=== PATIENT | female | born 1990 | race Caucasian/White ===

== ENCOUNTER 2017-12-18 17:38 | Emergency (ER) | payer SELFPAY ==
[2017-12-18 17:45] VITALS: BP 122/70
[2017-12-18] MEDS ORDERED: PSEUDOEPHEDRINE HCL 30 MG TABLET PO ONE (18:03)
--- NOTE | 2017-12-18 18:07 | ER Document Report ---
ED ENT - General Chief Complaint: Ear Pain Stated Complaint: EAR PAIN Time Seen by Provider: 12/18/17 17:52 Mode of Arrival: Ambulatory Information source: Parent Notes: 27-year-old female to ED for complaint of ear pain. She states she felt there was liquid in her ears and her ears were popping and she had pain and she had sinus pain and she cannot hear very good because of it. Patient is alert and oriented pupils equal and react light respirations regular unlabored and walking with a even steady gait. 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 TRAVEL OUTSIDE OF THE [place] IN LAST 30 DAYS: No - HPI Patient complains to provider of: Ear problem, Nose problem Onset: Other - Chronic with a increase in the last couple weeks Onset/Duration: Gradual, Persistent Quality of pain: Achy Severity: Moderate Pain Level: 2 Context: Recent Illness Location of pain: Ears, Sinus Associated symptoms: Ear pain, Runny nose, Sinus pain, Sinus drainage, Sore throat Similar symptoms previously: Yes Recently seen / treated by doctor: Yes - Related Data Allergies/Adverse Reactions: No Known Allergies Allergy (Verified 12/18/17 17:39) Past Medical History - General Information source: Patient - Social History Smoking Status: Current Every Day Smoker Cigarette use (# per day): Yes Chew tobacco use (# tins/day): No Smoking Education Provided: Yes Frequency of alcohol use: None Drug Abuse: None Lives with: Family Family History: Arthritis, CAD Patient has suicidal ideation: No Patient has homicidal ideation: No - Past Medical History Cardiac Medical History: Reports: None Pulmonary Medical History: Reports: Hx Pneumonia EENT Medical History: Reports: None Neurological Medical History: Reports: None Endocrine Medical History: Reports: None Renal/ Medical History: Reports: None Malignancy Medical History: Reports: None GI Medical History: Reports: None Musculoskeltal Medical History: Reports Hx Musculoskeletal Deformity Skin Medical History: Reports None Psychiatric Medical History: Reports: None Traumatic Medical History: Reports: None Infectious Medical History: Reports: None Surgical Hx: Negative Past Surgical History: Reports: None - Immunizations Immunizations up to date: No Hx Diphtheria, Pertussis, Tetanus Vaccination: No Review of Systems - Review of Systems Constitutional: Recent illness EENT: Ear pain, Nose congestion, Nose discharge, Sinus discharge Cardiovascular: No symptoms reported Respiratory: No symptoms reported Gastrointestinal: No symptoms reported Genitourinary: No symptoms reported Female Genitourinary: No symptoms reported Musculoskeletal: No symptoms reported Skin: No symptoms reported Hematologic/Lymphatic: No symptoms reported Neurological/Psychological: No symptoms reported -: Yes All other systems reviewed and negative Physical Exam - Vital signs Vitals: Temp Pulse Resp BP Pulse Ox 99.1 F 77 18 122/70 99 12/18/17 17:43 12/18/17 17:43 12/18/17 17:43 12/18/17 17:43 12/18/17 17:43 Interpretation: Normal - General General appearance: Appears well, Alert - HEENT Head: Normocephalic, Atraumatic Eyes: Normal Pupils: PERRL Ears: Normal External canal: Normal Tympanic membrane: Normal Sinus: Normal Nasal: Purulent discharge, Swelling Mouth/Lips: Normal Mucous membranes: Normal Pharynx: Post nasal drainage Neck: Normal - Respiratory Respiratory status: No respiratory distress Chest status: Nontender Breath sounds: Normal Chest palpation: Normal - Cardiovascular Rhythm: Regular Heart sounds: Normal auscultation Murmur: No - Abdominal Inspection: Normal Distension: No distension Bowel sounds: Normal Tenderness: Nontender Organomegaly: No organomegaly - Back Back: Normal, Nontender - Extremities General upper extremity: Normal inspection, Nontender, Normal color, Normal ROM , Normal temperature General lower extremity: Normal inspection, Nontender, Normal color, Normal ROM , Normal temperature, Normal weight bearing. No: Megan's sign - Neurological Neuro grossly intact: Yes Cognition: Normal Orientation: AAOx4 [place] Coma Scale Eye Opening: Spontaneous [place] Coma Scale Verbal: Oriented Tay Coma Scale Motor: Obeys Commands Tay Coma Scale Total: 15 Speech: Normal Motor strength normal: LUE, RUE, LLE, RLE Sensory: Normal - Psychological Associated symptoms: Normal affect, Normal mood - Skin Skin Temperature: Warm Skin Moisture: Dry Skin Color: Normal Course - Re-evaluation Re-evalutation: 12/18/17 21:05 She was treated with Sudafed for her sinus pressure and congestion. Her ears were negative for any kind of infection or fluid. There was no redness no inflammation to the ear canal. Patient was instructed to use Sudafed to help her congestion and to follow-up with the ENT. After performing a Medical Screening Examination, I estimate there is LOW risk for ACUTE CORONARY SYNDROME , RESPIRATORY FAILURE, SEPSIS OR MENINGITIS, thus I consider the discharge disposition reasonable. I have reevaluated this patient multiple times and no significant life threatening changes are noted. The patient and I have discussed the diagnosis and risks, and we agree with discharging home with close follow-up. We also discussed returning to the Emergency Department immediately if new or worsening symptoms occur. We have discussed the symptoms which are most concerning (e.g., changing or worsening pain, trouble swallowing or breathing, neck stiffness, fever) that necessitate immediate return. - Vital Signs Vital signs: Temp Pulse Resp BP Pulse Ox 99.1 F 77 18 122/70 99 12/18/17 17:43 12/18/17 17:43 12/18/17 17:43 12/18/17 17:43 12/18/17 17:43 Discharge - Discharge Clinical Impression: Otalgia Qualifiers: Laterality: bilateral Qualified Code(s): H92.03 - Otalgia, bilateral URI (upper respiratory infection) Qualifiers: URI type: unspecified URI Qualified Code(s): J06.9 - Acute upper respiratory infection, unspecified Condition: Stable Disposition: HOME, SELF-CARE Instructions: Family Physicians / Practices Additional Instructions: UPPER RESPIRATORY ILLNESS: You have a viral infection of the respiratory passages -- a "cold." This common infection causes nasal congestion, drainage, and often sore throat and cough. It is highly contagious. The disease usually lasts about 10 to 14 days. There is no "cure" for the viral infection -- it must run its course. If there is a complication, such as bacterial infection in the nose, sinuses, middle ear, or bronchial tubes, antibiotics may be required. The antibiotics won't affect the virus. Drink plenty of fluids. A humidifier may help. An expectorant medication or decongestant may make you more comfortable. Use acetaminophen or ibuprofen for fever or aches. See the doctor if fever persists over two days, if there is any significant worsening of your symptoms, or if you simply fail to improve as expected. DECONGESTANT MEDICATION: A decongestant medicine has been prescribed. Often this medicine is combined in the same tablet with an antihistamine or expectorant. This type of medicine is helpful in treating a bad cold or sinus condition, as well as in treatment of the nasal congestion of hay fever. It is not of much benefit for lung infections. Decongestant medicines are related to stimulants. They can cause an increase in blood pressure and heart rate. Persons with heart disease and high blood pressure should not take decongestants without discussing this with the physician. If you develop palpitations, chest pain, headache, or tremors, stop the medicine and consult your physician. USE OF ACETAMINOPHEN (Tylenol): Acetaminophen may be taken for pain relief or fever control. It's much safer than aspirin, offering a wider range of "safe" dosages. It is safe during . Some brand names are Tylenol, Panadol, Datril, Anacin 3, Tempra, and Liquiprin. Acetaminophen can be repeated every four hours. The following are maximum recommended dosages: >89 pounds or adults 650 mg to 900 mg Acetaminophen can be repeated every four hours. Maximum dose not to exceed 4000 mg a day. SMOKING: If you smoke, you should stop smoking. The tar and chemicals in cigarette smoke are harmful. Smoking has been shown to cause: emphysema chronic bronchitis lung cancer mouth and throat cancer stomach and pancreas cancer premature aging defects In addition, smoking increases ear and lung infections in children of smokers. I have given you some Sudafed in the emergency room. This you can buy over-the- counter if you go to the pharmacist and asked the pharmacist for it. You will need to sign for it. Other things that can help use cough and cold symptoms are Mucinex Claritin or Zyrtec and Flonase. These are all ecuu-[id number] medications. You need to follow-up with an ENT for your continued ear pain and your decreased hearing in your right ear. There are no signs or symptoms of an ear infection at this time. There is no signs of any drainage in your ear at this time. FOLLOW-UP CARE: If you have been referred to a physician for follow-up care, call the physician s office for an appointment as you were instructed or within the next two days. If you experience worsening or a significant change in your symptoms, notify the physician immediately or return to the Emergency Department at any time for re-evaluation. Forms: Smoking Cessation Education, Return to Work Referrals: [facility] [Provider Group] - Follow up as needed MADALYN MENA DO [ASSOCIATE] - Follow up as needed
== END 2017-12-18 18:13 | disposition home or self-care (01) ==
LOC: ER 17:38
DX: H92.03 Otalgia, bilateral (principal); J06.9 Acute upper respiratory infection, unspecified; J34.89 Other specified disorders of nose and nasal sinuses; J02.9 Acute pharyngitis, unspecified; R09.81 Nasal congestion; R09.82 Postnasal drip; F17.210 Nicotine dependence, cigarettes, uncomplicated; Z87.01 Personal history of pneumonia (recurrent)
CPT/HCPCS: 99282

== ENCOUNTER 2018-07-20 11:21 | Observation (INO) | payer SELFPAY ==
[~2018-07-20 11:21] MED LIST: BUPRENORPHINE HCL 2 MG SUBLINGUAL TABLET SL SCH
--- NOTE | 2018-07-20 12:54 | ER Document Report ---
ED Medical Screen (RME) - General Chief Complaint: Vaginal Bleeding Stated Complaint: VAGINAL BLEEDING Time Seen by Provider: 07/20/18 12:51 TRAVEL OUTSIDE OF THE [place] IN LAST 30 DAYS: No - Related Data Allergies/Adverse Reactions: No Known Allergies Allergy (Verified 07/20/18 11:23) Home Medications: soboxin. buspar. vistaril Past Medical History - Social History Chew tobacco use (# tins/day): No Frequency of alcohol use: None Drug Abuse: None Pulmonary Medical History: Reports: Hx Pneumonia Renal/ Medical History: Denies: Hx Peritoneal Dialysis Musculoskeltal Medical History: Reports Hx Musculoskeletal Deformity - Immunizations Immunizations up to date: No Hx Diphtheria, Pertussis, Tetanus Vaccination: No Physical Exam - Vital signs Vitals: Temp Pulse Resp BP Pulse Ox 98.4 F 83 16 105/57 L 98 07/20/18 11:52 07/20/18 11:52 07/20/18 11:52 07/20/18 11:52 07/20/18 11:52 Course - Vital Signs Vital signs: Temp Pulse Resp BP Pulse Ox 98.4 F 83 16 105/57 L 98 07/20/18 11:52 07/20/18 11:52 07/20/18 11:52 07/20/18 11:52 07/20/18 11:52
--- NOTE | 2018-07-20 12:56 | ER Document Report ---
ED GI/ - General Mode of Arrival: Ambulatory Information source: Patient TRAVEL OUTSIDE OF THE [place] IN LAST 30 DAYS: No - Related Data Home Medications: soboxin. buspar. vistaril <NEHAL SCALES - Last Filed: 07/20/18 17:28> <WILLIS RODRÍGUEZ - Last Filed: 07/20/18 21:21> - General Chief Complaint: Vaginal Bleeding Stated Complaint: VAGINAL BLEEDING Time Seen by Provider: 07/20/18 12:51 Notes: 28-year-old female who presents to the emergency department today with complaints of vaginal bleeding and lower abdominal cramping. Patient states her last menstrual period was June 27 and she did have a positive at-home test. Patient is A2. Patient denies any nausea, vomiting, diarrhea, or lightheadedness. (NEHAL SCALES) - Related Data Allergies/Adverse Reactions: No Known Allergies Allergy (Verified 07/20/18 11:23) Past Medical History - General Information source: Patient - Social History Smoking Status: Current Every Day Smoker Cigarette use (# per day): Yes Chew tobacco use (# tins/day): No Frequency of alcohol use: None Drug Abuse: None Lives with: Family Family History: Arthritis, CAD Patient has suicidal ideation: No Patient has homicidal ideation: No Pulmonary Medical History: Reports: Hx Pneumonia Musculoskeletal Medical History: Reports Hx Musculoskeletal Deformity - Immunizations Immunizations up to date: No Hx Diphtheria, Pertussis, Tetanus Vaccination: No <NEHAL SCALES - Last Filed: 07/20/18 17:28> Review of Systems - Review of Systems Constitutional: No symptoms reported EENT: No symptoms reported Cardiovascular: denies: Lightheaded Respiratory: No symptoms reported Gastrointestinal: denies: Diarrhea, Nausea, Vomiting Genitourinary: No symptoms reported Female Genitourinary: See HPI, Last menstrual period - Jun 27, Musculoskeletal: No symptoms reported Skin: No symptoms reported Hematologic/Lymphatic: No symptoms reported Neurological/Psychological: No symptoms reported -: Yes All other systems reviewed and negative <NEHAL SCALES - Last Filed: 07/20/18 17:28> Physical Exam <NEHAL SCALES - Last Filed: 07/20/18 17:28> - Vital signs Vitals: Temp Pulse Resp BP Pulse Ox 98.4 F 83 16 105/57 L 98 07/20/18 11:52 07/20/18 11:52 07/20/18 11:52 07/20/18 11:52 07/20/18 11:52 - Notes Notes: PHYSICAL EXAM GENERAL: Alert, interacts well. No acute distress. HEAD: Normocephalic, atraumatic. EYES: Pupils equal, round, and reactive to light. Extraocular movements intact. ENT: Oral mucosa moist, tongue midline. NECK: Full range of motion. Supple. Trachea midline. LUNGS: Clear to auscultation bilaterally, no wheezes, rales, or rhonchi. No respiratory distress. HEART: Regular rate and rhythm. No murmurs, gallops, or rubs. ABDOMEN: Soft, non-tender. Non-distended. Bowel sounds present in all 4 quadrants. No guarding, rigidity, or rebound. EXTREMITIES: Moves all 4 extremities spontaneously. No edema, radial and dorsalis pedis pulses 2/4 bilaterally. No cyanosis. NEUROLOGICAL: Alert and oriented x3. Normal speech. PSYCH: Normal affect, normal mood. SKIN: Warm, dry, normal turgor. No rashes or lesions noted. (NEHAL SCALES) Course - Laboratory Result Diagrams: 07/20/18 14:00 07/20/18 14:00 <NEHAL SCALES - Last Filed: 07/20/18 17:28> - Laboratory Result Diagrams: 07/20/18 14:00 07/20/18 14:00 <WILLIS RODRÍGUEZ - Last Filed: 07/20/18 21:21> - Re-evaluation Re-evalutation: 07/20/18 17:35 CBC unremarkable, CMP unremarkable, quant is 5093, urinalysis shows large blood, positive nitrates, trace leukocyte esterase, I actually suspect this is contamination given that there are 13 WBCs, patient is a negative, RhoGam is being given, transvaginal ultrasound result was called to me by the radiologist, it shows a donut-shaped mass in the right adnexa which is hyperemic and is concerning for ectopic . Discussed patient with Dr. Willis Evans the OB on-call who agrees to place the patient on her service in observation status for management of an ectopic . Patient will either need methotrexate or surgical management. (WILLIS RODRÍGUEZ) - Vital Signs Vital signs: Temp Pulse Resp BP Pulse Ox 98.2 F 78 16 99/64 L 99 07/20/18 19:57 07/20/18 19:57 07/20/18 11:52 07/20/18 19:57 07/20/18 19:57 - Laboratory Laboratory results interpreted by me: 07/20/18 07/20/18 07/20/18 13:30 14:00 14:00 Monocytes % (Manual) 0 L Abs Monocytes (Manual) 0.0 L Beta HCG, Quant 5093.60 H Urine Blood LARGE H Urine Nitrite POSITIVE H Ur Leukocyte Esterase TRACE H Discharge <NEHAL SCALES - Last Filed: 07/20/18 17:28> - Discharge Admitting Provider: [facility] Unit Admitted: Medical Floor <WILLIS RODRÍGUEZ - Last Filed: 07/20/18 21:21> - Discharge Clinical Impression: Ectopic Qualifiers: Location of ectopic : tubal Intrauterine status: without intrauterine Laterality: right Qualified Code(s): O00.101 - Right tubal without intrauterine Condition: Stable Disposition: ADMITTED OBSERVATION Scribe Attestation: 07/20/18 21:21 I personally performed the services described in the documentation, reviewed and edited the documentation which was dictated to the scribe in my presence, and it accurately records my words and actions. (WILLIS RODRÍGUEZ) Scribe Documentation - Scribe Written by Scribe:: Dwight Collazo, 07/20/2018 1315 acting as scribe for :: Julio <NEHAL SCALES - Last Filed: 07/20/18 17:28>
[2018-07-20 13:45] LABS: APPEARANCE,URINE CLOUDY; BILIRUBIN,URINE NEGATIVE (NEGATIVE); COLOR,URINE YELLOW; GLUCOSE, URINE NEGATIVE (NEGATIVE); KETONES,URINE NEGATIVE (NEGATIVE); LEUKOCYTE ESTERASE,URINE TRACE (NEGATIVE); NITRITE,URINE POSITIVE (NEGATIVE); PROTEIN,URINE NEGATIVE (NEGATIVE); URINE SPECIFIC GRAVITY 1.017; UROBILINOGEN,URINE NEGATIVE mg/dL (<2.0)
[2018-07-20 14:22] LABS: HEMATOCRIT 40.6 % (36.0-47.0); MEAN CORPUSCULAR HEMOGLOBIN 30.8 pg (27.0-33.4); MEAN CORPUSCULAR HGB CONC 34.5 g/dL (32.0-36.0); MEAN CORPUSCULAR VOLUME 90 fl (80-97); RED BLOOD COUNT 4.53 10^6/uL (3.72-5.28); RED CELL DISTRIBUTION WIDTH 13.5 % (11.5-14.0); WHITE BLOOD COUNT 5.9 10^3/uL (4.0-10.5)
[2018-07-20 14:28] LABS: ALANINE AMINOTRANSFERASE 13 U/L (9-52); ALBUMIN 4.9 g/dL (3.5-5.0); ALKALINE PHOSPHATASE 42 U/L (38-126); ANION GAP 8 (5-19); ASPARTATE AMINO TRANSFERASE 21 U/L (14-36); BILIRUBIN,DIRECT 0.4 mg/dL (0.0-0.4); BILIRUBIN,TOTAL 0.7 mg/dL (0.2-1.3); BLOOD UREA NITROGEN 11 mg/dL (7-20); CALCIUM 10.1 mg/dL (8.4-10.2); CARBON DIOXIDE 26 mmol/L (22-30); CHLORIDE 104 mmol/L (98-107); GLUCOSE 83 mg/dL (75-110); POTASSIUM 4.7 mmol/L (3.6-5.0); SODIUM 137.5 mmol/L (137-145); TOTAL PROTEIN 7.4 g/dL (6.3-8.2)
[2018-07-20 14:42] LABS: PLATELET COUNT 167 10^3/uL (150-450)
[2018-07-20 14:46] LABS: ABSOLUTE LYMPHOCYTES# (MANUAL) 2.4 10^3/uL (0.5-4.7); ABSOLUTE NEUTROPHILS# (MANUAL) 3.5 10^3/uL (1.7-8.2); BASOPHILS % (MANUAL) 0 % (0-2); EOSINOPHILS % (MANUAL) 0 % (0-6); HYPOCHROMASIA SLIGHT; LYMPHOCYTES % (MANUAL) 36 % (13-45); MONOCYTES % (MANUAL) 0 % (3-13); PLATELET CLUMPS PRESENT; POLYCHROMASIA SLIGHT; SEGMENTED NEUTROPHILS % (MAN) 59 % (42-78); TOTAL CELLS COUNTED 100
--- NOTE | 2018-07-20 17:32 | RADIOLOGY REPORT (SQ) ---
EXAM DESCRIPTION: U/S OB TRANSVAG W/DOPPLER COMPLETED DATE/TIME: 07/20/2018 5:12 pm REASON FOR STUDY: , vaginal bleeding COMPARISON: None. TECHNIQUE: Transvaginal static and realtime grayscale images acquired of the pelvis. Additional claudia cted spectral and color Doppler images recorded. All images stored on PACs. [id number] CLINICAL DATES: LMP 06/27/2018 LIMITATIONS: None. FINDINGS: No intrauterine gestational sac is appreciated. UTERUS: No masses. No anomalies. CERVICAL LENGTH: 2.7 cm. Closed. RIGHT ADNEXA: Ovary with vascular flow. 2.1 x 3 x 1.4 cm. There is a slightly hyperechoic 1.2 x 1.3 x 1.2 cm mass associated with the right ovary. There is a hypoechoic center. There is hyperemia as sociated with this mass. No adnexal free fluid. LEFT ADNEXA: Normal ovary with normal vascular flow. 2.5 x 1.5 x 1.5 cm. No adnexal free fluid. No adnexal masses. FREE FLUID: None. OTHER: No other significant finding. IMPRESSION: No intrauterine gestational sac is present at this time. There are findings in the righ t adnexa concerning for an ectopic . COMMENT: Pertinent findings on the imaging study reported as a CRITICAL RESULT to WILLIS Zuluaga t17:26 on 07/20/2018. TECHNICAL DOCUMENTATION: JOB ID: [id number] [employer]- All Rights Reserved rev-12/10 Reading location - IP/workstation name: [email or web address]
--- NOTE | 2018-07-20 19:27 | PDOC H&P ---
History of Present Illness Admission Date/PCP: 07/20/18 18:08 Patient complains of: vaginal bleeding History of Present Illness: ANUEL MILLER is a 28 year old female (h/o SAB, H/o EAB) at 3+2ega presents for vaginal bleeding. She reports only mild lower abdominal pain a couple of days ago and then none really today. She is on suboxone for h/o addiction. She last at a full meal a couple of hours ago. However she has just almost completed a Sun Drop 20 oz soda. Past Medical History LMP: 06/27/2018 Menses: regular Gynecological Infection: No Gynecological History Note: GC/CT pending today. Pt reports h/o gonorrhea/chlamydia but was treated and had good test of cure. Medical History: Other - addiction Cardiac Medical History: Reports: None Pulmonary Medical History: Reports: Pneumonia EENT Medical History: Reports: None Neurological Medical History: Reports: None Endocrine Medical History: Reports: None Renal/ Medical History: Reports: None Malignancy Medical History: Reports: None GI Medical History: Reports: None Musculoskeltal Medical History: Reports: None Psychiatric Medical History: Reports: Substance Abuse Traumatic Medical History: Reports: None Infectious Medical History: Reports: None Past Surgical History Past Surgical History: Reports: None Social History Information Source: Patient Lives with: Family Smoking Status: Current Every Day Smoker Frequency of Alcohol Use: Rare Hx Recreational Drug Use: No Drugs: None Hx Prescription Drug Abuse: Yes - currently on suboxone - Advance Directive Resuscitation Status: Full Code Family History Family History: Arthritis, CAD Parental Family History Reviewed: No Children Family History Reviewed: NA Sibling(s) Family History Reviewed.: NA Medication/Allergy Allergies/Adverse Reactions: No Known Allergies Allergy (Verified 07/20/18 11:23) Review of Systems Constitutional: ABSENT: chills, fever(s), headache(s), weight gain, weight loss Gastrointestinal: PRESENT: as per HPI Genitourinary: ABSENT: dysuria, hematuria Neurological: ABSENT: abnormal gait, abnormal speech, confusion, dizziness, focal weakness, syncope Hematologic/Lymphatic: ABSENT: easy bleeding, easy bruising Physical Exam - Physical Exam Vital Signs: Temp Pulse Resp BP Pulse Ox 98.4 F 83 16 105/57 L 98 07/20/18 11:52 07/20/18 11:52 07/20/18 11:52 07/20/18 11:52 07/20/18 11:52 Intake & Output 07/19/18 07/20/18 07/21/18 06:59 06:59 06:59 Weight 53.8 kg General appearance: PRESENT: no acute distress, well-developed, well-nourished Head exam: PRESENT: atraumatic, normocephalic Respiratory exam: PRESENT: clear to auscultation kelly, symmetrical, unlabored Cardiovascular exam: PRESENT: RRR. ABSENT: diastolic murmur, rubs, systolic murmur Pulses: PRESENT: normal dorsalis pedis pul, +2 pedal pulses bilateral GI/Abdominal exam: PRESENT: normal bowel sounds, soft. ABSENT: distended, guarding, mass, organolmegaly, rebound, tenderness Rectal exam: PRESENT: deferred Extremities exam: PRESENT: full ROM. ABSENT: calf tenderness, clubbing, pedal edema Musculoskeletal exam: PRESENT: ambulatory Neurological exam: PRESENT: alert, awake, oriented to person, oriented to place, oriented to time, oriented to situation, CN II-XII grossly intact. ABSENT: motor sensory deficit Psychiatric exam: PRESENT: appropriate affect, normal mood. ABSENT: homicidal ideation, suicidal ideation Skin exam: PRESENT: dry, intact, warm. ABSENT: cyanosis, rash Result Laboratory Results: 07/20/18 14:00 07/20/18 14:00 07/20/18 07/20/18 07/20/18 13:30 14:00 14:00 WBC 5.9 RBC 4.53 Hgb 14.0 Hct 40.6 MCV 90 MCH 30.8 MCHC 34.5 RDW 13.5 Plt Count 167 Seg Neutrophils % Not Reportable Lymphocytes % Not Reportable Monocytes % Not Reportable Eosinophils % Not Reportable Basophils % Not Reportable Absolute Neutrophils Not Reportable Absolute Lymphocytes Not Reportable Absolute Monocytes Not Reportable Absolute Eosinophils Not Reportable Absolute Basophils Not Reportable Sodium 137.5 Potassium 4.7 Chloride 104 Carbon Dioxide 26 Anion Gap 8 BUN 11 Creatinine 0.64 Est GFR ( Amer) > 60 Est GFR (Non-Af Amer) > 60 Glucose 83 Calcium 10.1 Total Bilirubin 0.7 AST 21 ALT 13 Alkaline Phosphatase 42 Total Protein 7.4 Albumin 4.9 Urine Color YELLOW Urine Appearance CLOUDY Urine pH 7.0 Ur Specific Labelle 1.017 Urine Protein NEGATIVE Urine Glucose (UA) NEGATIVE Urine Ketones NEGATIVE Urine Blood LARGE H Urine Nitrite POSITIVE H Ur Leukocyte Esterase TRACE H Urine WBC (Auto) 13 Urine RBC (Auto) 2 Blood Type Antibody Screen 07/20/18 14:00 WBC RBC Hgb Hct MCV MCH MCHC RDW Plt Count Seg Neutrophils % Lymphocytes % Monocytes % Eosinophils % Basophils % Absolute Neutrophils Absolute Lymphocytes Absolute Monocytes Absolute Eosinophils Absolute Basophils Sodium Potassium Chloride Carbon Dioxide Anion Gap BUN Creatinine Est GFR ( Amer) Est GFR (Non-Af Amer) Glucose Calcium Total Bilirubin AST ALT Alkaline Phosphatase Total Protein Albumin Urine Color Urine Appearance Urine pH Ur Specific Labelle Urine Protein Urine Glucose (UA) Urine Ketones Urine Blood Urine Nitrite Ur Leukocyte Esterase Urine WBC (Auto) Urine RBC (Auto) Blood Type A NEGATIVE Antibody Screen NEGATIVE Impressions: Transvaginal US 07/20/18 12:55 IMPRESSION: No intrauterine gestational sac is present at this time. There are findings in the right adnexa concerning for an ectopic . Status: Imported from PACS Assessment & Plan - Diagnosis (1) Ectopic Qualifiers: Location of ectopic : tubal Intrauterine status: without intrauterine Laterality: right Qualified Code(s): O00.101 - Right tubal without intrauterine Is this a current diagnosis for this admission?: Yes Plan: Reviewed options and R/B/A to each with patient. Expectant (not recommended) vs Medical with MTX vs Surgical. She desires surgical management. Partner was present for discussion as well. Due to NPO status and patient medically stable reviewed with Anesthesia timing of surgery as it is non emergent at this time. No rebound or guarding on exam. NPO status would put patient after 0230 am for surgical management therefore will place patient recreational specialist for am surgery. RN production planning supervisor notified. MD on tomorrow notified as well and will place patient on floor for monitoring until surgical intervention. If e/o rupture then will proceed with surgery at that time during the night. Reviewed possible need to remove tube with patient and partner Rh negative - will give rhogam - Time Time Spent: 30 to 50 Minutes Critical Time spent with patient: Less than 15 minutes Smoking Cessation Education: 3 to 10 minutes Medications reviewed and adjusted accordingly: Yes Anticipated discharge: Home Within: within 24 hours - Inpatient Certification Based on my medical assessment, after consideration of the patient's comorbidities, presenting symptoms, or acuity I expect that the services needed warrant INPATIENT care.: Yes I certify that my determination is in accordance with my understanding of Medicare's requirements for reasonable and necessary INPATIENT services [42 CFR 412.3e].: Yes Medical Necessity: Need For IV Fluids, Need for Pain Control, Need for Surgery - Plan Summary Plan Summary: ok to discharge after surgery.
[2018-07-20 20:35] LABS: CHLAM PCR NOT DETECTED (NOT DETECT); GON PCR NOT DETECTED (NOT DETECT)
[2018-07-20] MEDS ORDERED: BUPRENORPHINE HCL 2 MG SUBLINGUAL TABLET SL ONE (23:00)
[2018-07-21] MEDS ORDERED: HYDROXYZINE PAMOATE 25 MG CAPSULE PO SCH (10:00)
[2018-07-21] MEDS ORDERED: BUSPIRONE HCL 10 MG TABLET PO SCH (10:00)
[2018-07-21] MEDS ORDERED: BUPRENORPHINE HCL 2 MG SUBLINGUAL TABLET SL SCH (10:00)
[2018-07-21] MEDS ORDERED: RINGERS SOLUTION,LACTATED 1,000 ML IV PRN ×2 (10:29→12:59)
[2018-07-21] MEDS ORDERED: FENTANYL CITRATE INJ/PF 100 MCG/2 ML AMPUL ONE ×2 (10:51→12:55)
[2018-07-21] MEDS ORDERED: EPHEDRINE SULFATE INJ 50 MG/1 ML AMPULE ONE (10:51)
[2018-07-21] MEDS ORDERED: MIDAZOLAM 2 MG/2 ML INJ ONE (10:51)
[2018-07-21] MEDS ORDERED: HYDROMORPHONE HCL INJ/PF 2 MG/ML AMPULE ONE (10:52)
[2018-07-21] MEDS ORDERED: PROPOFOL INJ 200 MG/20 ML VIAL IV ONE (10:52)
[2018-07-21] MEDS ORDERED: ACETAMINOPHEN 1,000 MG/100 ML RTUPB IV ONE (10:52)
[2018-07-21] MEDS ORDERED: VASOPRESSIN INJ 20 UNIT/1 ML VIAL ONE (11:01)
[2018-07-21] MEDS ORDERED: BUPIVACAINE HCL 0.25 % INJ/PF (2.5 MG/1 ML) 30 ML VIAL ONE (11:21)
[2018-07-21] MEDS ORDERED: METHYLENE BLUE 50 MG/10 ML AMPULE ONE (11:21)
[2018-07-21] MEDS ORDERED: SUCCINYLCHOLINE CHLORIDE INJ 200 MG/10 ML VIAL ONE (11:36)
[2018-07-21] MEDS ORDERED: DEXAMETHASONE SOD PHOSPHATE INJ 4 MG/1 ML VIAL ONE (11:36)
[2018-07-21] MEDS ORDERED: NEOSTIGMINE METHYLSULFATE 10 MG/10 ML VIAL ONE (11:36)
[2018-07-21] MEDS ORDERED: GLYCOPYRROLATE 1 MG/5 ML SYRINGE ONE (11:36)
[2018-07-21] MEDS ORDERED: ROCURONIUM BROMIDE INJ 50 MG/5 ML VIAL IV ONE (11:36)
[2018-07-21] MEDS ORDERED: ONDANSETRON HCL INJ/PF 4 MG/2 ML SDV ONE (11:36)
[2018-07-21] MEDS ORDERED: KETOROLAC TROMETHAMINE 60 MG/2 ML SDV ONE (11:36)
[2018-07-21] MEDS ORDERED: LIDOCAINE 2% INJ-PF (20 MG/ML) 2 ML AMPUL ONE (11:36)
[2018-07-21] MEDS ORDERED: PROMETHAZINE HCL INJ 25 MG/1 ML VIAL IV PRN (12:01)
[2018-07-21] MEDS ORDERED: DIPHENHYDRAMINE HCL 50 MG/ML VIAL IV PRN (12:01)
[2018-07-21] MEDS ORDERED: FENTANYL CITRATE INJ/PF 100 MCG/2 ML AMPUL IV PRN ×3 (12:01)
[2018-07-21] MEDS ORDERED: PROMETHAZINE HCL INJ 25 MG/1 ML VIAL ONE (12:52)
--- NOTE | 2018-07-21 12:58 | Operative Report ---
Operative Report DATE OF SURGERY: 07/21/18 PREOPERATIVE DIAGNOSIS: 1. Right ectopic . 2. History of opioid add iction POSTOPERATIVE DIAGNOSIS: Same OPERATION: Laparoscopic right partial salpingectomy with evacuation of ectopic SURGEON: DARLENE MONTANA ANESTHESIA: GA TISSUE REMOVED OR ALTERED: Partial right fallopian tube with ectopic COMPLICATIONS: None ESTIMATED BLOOD LOSS: 25 mL INTRAOPERATIVE FINDINGS: Right ectopic in the right fallopian tube, measuring approximately 2 x 2 cm PROCEDURE: Patient was taken to the operating room where general anesthesia was administered without difficulty. The patient was then prepared and draped in a normal sterile fashion in the dorsal lithotomy position. Next, a red Philip catheter was placed in the patient's bladder and left in place during the entire procedure. Approximately 50 mL clear urine was evacuated during the procedure. Next, a bivalve speculum was placed in the patient's vagina and the anterior lip of the cervix was grasped with a single-tooth tenaculum. An acorn manipulator was introduced into the endocervical canal and into the uterine cavity as a means to manipulate the uterus during the procedure. A bivalve speculum was then removed. Attention was then turned to the patient's abdomen where bupivacaine was injected into the umbilicus and a 5 mm vertical incision was made in the umbilicus. A 5 mm port was placed under direct visualization. Once placement was verified with CO2 gas was charted. Patient was then placed in Trendelenburg and the uterus was raised. Immediately, a right ectopic was seen in the right fallopian tube. Right and left 5 mm port was placed laterally. The umbilical port was converted from a 5 mm to a 10 mm port. The right tube was then grasped and an Endoloop was placed around the ectopic and laparoscopic scissors were used to transect the mass. The mass was then placed into an Endo ASIM bag and removed through the umbilical port. Attention was then returned back to the tube, which was hemostatic. The excess blood was then suctioned from the abdomen. Pictures were taken before and after the partial salpingectomy. Next, the CO2 gas was turned off and the gas was allowed to escape from the patient's abdomen. All 3 ports were then removed from patient's abdomen. The fascia was repaired on the umbilical incision. All 3 port sites were repaired in a subcuticular fashion with 4-0 Vicryl. Dermabond was then p laced over each incision. Attention was then returned to the patient's vagina where the single-tooth tenaculum and acorn manipulator were then removed. There was bleeding from the tenaculum site. Monsel solution was placed over each puncture and hemostasis was noted. All instruments were then removed in the patient's vagina. The patient tolerated the procedure well. Sponge, instrument and needle counts were correct x2. Patient was taken to recovery room awake and in stable condition.
[2018-07-21] MEDS ORDERED: ONDANSETRON HCL INJ/PF 4 MG/2 ML SDV IV PRN (12:59)
[2018-07-21] MEDS ORDERED: HYDROXYZINE PAMOATE 25 MG CAPSULE PO ONE (15:30)
[2018-07-21] MEDS ORDERED: BUPRENORPHINE HCL 2 MG SUBLINGUAL TABLET SL ONE (15:30)
[2018-07-21] MEDS ORDERED: BUSPIRONE HCL 10 MG TABLET PO ONE (15:30)
[2018-07-21] MEDS: KETOROLAC TROMETHAMINE 60 MG/2 ML SDV IM PRN ×2 (17:52→18:34)
[2018-07-21] MEDS ORDERED: KETOROLAC TROMETHAMINE INJ/PF 30 MG/1 ML SDV IV ONE (19:00)
--- NOTE | 2018-07-21 19:02 | PDOC DISCHARGE SUMMARY ---
General - Admit/Disc Date/PCP Admission Date/Primary Care Provider: 07/20/18 18:08 Discharge Date: 07/21/18 - Discharge Diagnosis (1) Rh negative state in antepartum period Is this a current diagnosis for this admission?: Yes (2) History of opioid abuse Is this a current diagnosis for this admission?: Yes (3) Tobacco abuse Is this a current diagnosis for this admission?: Yes (4) Ectopic Is this a current diagnosis for this admission?: Yes - Additional Information Resuscitation Status: Full Code Discharge Diet: As Tolerated, Regular Discharge Activity: Balance Activity w/Rest, No Lifting Over 10 Pounds, No Lifting/Push/Pulling, Pelvic Rest, No tub bath Home Medications: Buprenorphine HCl/Naloxone HCl [Suboxone 8 mg-2 mg Sl Film] 8 mg SL Q12 07/20/18 Buspirone HCl [Buspar 5 mg Tablet] 5 mg PO DAILY 07/20/18 Hydroxyzine Pamoate [Vistaril 25 mg Capsule] 25 mg PO DAILY 07/20/18 History of Present Illness History of Present Illness: ANUEL MILLER is a 28 year old presented to the ED plane of pelvic pain. Patient underwent a pelvic ultrasound which showed a right ectopic . She was offered methotrexate to resolve the ectopic . The mass was measuring approximately 1 x 1 cm. This patient would have been a great candidate for methotrexate. However, this patient wanted to undergo surgery instead. Patient drank a 20 ounce soda which precluded her from having surgery last night. Hospital Course Hospital Course: Patient was taken to the operating suite around 1030 today where a laparoscopic right partial salpingectomy with evacuation of ectopic , was performed without difficulty. Patient received her Subutex was given NSAIDs for pain control, which worked well for her. She received her RhoGam. She has tolerated a meal and is voiding and ambulating without difficulty. Physical Exam - Physical Exam Vital Signs: Temp Pulse Resp BP Pulse Ox 99.0 F 76 15 106/61 96 07/21/18 18:40 07/21/18 18:40 07/21/18 18:40 07/21/18 18:40 07/21/18 18:40 Intake & Output 07/20/18 07/21/18 07/22/18 06:59 06:59 06:59 Intake Total 1330 Output Total 225 Balance 1105 Weight 53.8 kg General appearance: PRESENT: no acute distress Respiratory exam: PRESENT: clear to auscultation kelly Cardiovascular exam: PRESENT: RRR GI/Abdominal exam: PRESENT: normal bowel sounds, soft - Appropriate tenderness Extremities exam: ABSENT: calf tenderness, clubbing, full ROM, joint swelling, pedal edema, tenderness, +1 edema, +2 edema, other Result Laboratory Results: 07/20/18 14:00 07/20/18 14:00 07/20/18 14:00 Blood Type A NEGATIVE Antibody Screen NEGATIVE Impressions: Transvaginal US 07/20/18 12:55 IMPRESSION: No intrauterine gestational sac is present at this time. There are findings in the right adnexa concerning for an ectopic . Plan Discharge Plan: 1. discharge home 2. follow up in the office in 2 weeks for a postop exam or sooner if needed Time Spent: Less than 30 Minutes
[2018-07-21 21:24] VITALS: BP 108/68
== END 2018-07-21 21:20 | disposition home or self-care (01) ==
LOC: ER 11:21 → EH 18:08 → 2N 21:13
PROVIDERS: ADMIT Student in an Organized Health Care Education/Training Program; ATTEND Student in an Organized Health Care Education/Training Program
PROC: HZ31ZZZ Individual Counseling for Substance Abuse Treatment, Behavioral (ICD-10-PCS; principal; 2018-07-20)
PROC: 10T24ZZ Resection of Products of Conception, Ectopic, Percutaneous Endoscopic Approach (ICD-10-PCS; 2018-07-21)
PROC: 0UT54ZZ Resection of Right Fallopian Tube, Percutaneous Endoscopic Approach (ICD-10-PCS; 2018-07-21)
DX: O00.101 Right tubal pregnancy without intrauterine pregnancy (principal); O99.331 Smoking (tobacco) complicating pregnancy, first trimester; Z3A.01 Less than 8 weeks gestation of pregnancy; F17.210 Nicotine dependence, cigarettes, uncomplicated; F11.11 Opioid abuse, in remission; O26.891 Other specified pregnancy related conditions, first trimester; Z67.91 Unspecified blood type, Rh negative; Z79.899 Other long term (current) drug therapy; Z86.19 Personal history of other infectious and parasitic diseases
CPT/HCPCS: 99285; 86900 ×2; 86901 ×2; 36415 ×2; 87086; 85461; 86850; 84702; 85025; 87088; 80053; 81001; 87186; 87491; 87591; 88305 ×2; 76817; 93976; 99406; 59151; J2790; J2250; J3490 ×4; J1100; J1885; J3010; J2550; J0330; J2405; J2704; J0131; Q9968; J0571 ×2; 840; G0378; J1170

== ENCOUNTER 2018-11-23 01:20 | Emergency (ER) | payer SELFPAY ==
[2018-11-23 01:30] VITALS: BP 121/57
--- NOTE | 2018-11-23 02:34 | ER Document Report ---
ED Medical Screen (RME) - General Chief Complaint: Abdominal Pain Stated Complaint: ABDOMINAL PAIN Time Seen by Provider: 11/23/18 02:29 Notes: Patient is a 28-year-old female who presents emergency department with a chief complaint of left lower abdominal pain. She has had an ectopic in August this past year. She did have her right fallopian tube removed. She states that her symptoms feel similar. Exam: Tenderness to left lower abdomen. I have greeted and performed a rapid initial assessment of this patient. A comprehensive ED assessment and evaluation of the patient, analysis of test results and completion of medical decision making process will be conducted by an additional ED providers. TRAVEL OUTSIDE OF THE [place] IN LAST 30 DAYS: No - Related Data Allergies/Adverse Reactions: No Known Allergies Allergy (Verified 07/20/18 11:23) Past Medical History - Past Medical History Cardiac Medical History: Denies: Hx Congestive Heart Failure, Hx Heart Attack, Hx Hypertension Pulmonary Medical History: Denies: Hx Asthma, Hx Bronchitis, Hx COPD, Hx Pneumonia, Hx Tuberculosis Neurological Medical History: Denies: Hx Seizures Renal/ Medical History: Denies: Hx End Stage Renal Disease, Hx Kidney Stones, Hx Peritoneal Dialysis GI Medical History: Denies: Hx Cirrhosis, Hx Gastroesophageal Reflux Disease, Hx Ulcer Musculoskeltal Medical History: Denies Hx Arthritis, Denies Hx Multiple Sclerosis, Reports Hx Musculoskeletal Deformity Psychiatric Medical History: Denies: Hx Bipolar Disorder, Hx Depression, Hx Schizophrenia - Immunizations Immunizations up to date: No Hx Diphtheria, Pertussis, Tetanus Vaccination: No Physical Exam - Vital signs Vitals: Temp Pulse Resp BP Pulse Ox 98.0 F 85 20 121/57 L 100 11/23/18 01:27 11/23/18 01:27 11/23/18 01:27 11/23/18 01:27 11/23/18 01:27 Course - Vital Signs Vital signs: Temp Pulse Resp BP Pulse Ox 98.0 F 85 20 121/57 L 100 11/23/18 01:27 11/23/18 01:27 11/23/18 01:27 11/23/18 01:27 11/23/18 01:27
== END 2018-11-23 03:08 | disposition left against medical advice (07) ==
LOC: ER 01:20
DX: Z53.21 Procedure and treatment not carried out due to patient leaving prior to being seen by health care provider (principal); R10.9 Unspecified abdominal pain; R10.32 Left lower quadrant pain; Z98.890 Other specified postprocedural states
CPT/HCPCS: 99281